=== PATIENT | female | born 1985 | race Native Hawaiian/Other Pacific Islander ===

== ENCOUNTER 2017-12-25 12:02 | Emergency (ER) | payer OTHER ==
[~2017-12-25] VITALS: Ht 185.4 cm; Wt 156.5 kg
[2017-12-25 12:54] LABS: PLATELET COUNT 286 K/uL (152-353)
== END 2017-12-25 13:35 | disposition home or self-care (01) ==
LOC: ED 12:02
PROVIDERS: Family Medicine
DX: D64.9 Anemia, unspecified (principal); J06.9 Acute upper respiratory infection, unspecified
CPT/HCPCS: 85027; 87804; 99283

== ENCOUNTER 2019-04-28 12:56 | Outpatient (CLI) | payer OTHER | END 2019-04-28 20:33 | disposition home or self-care (01) | LOC: MRI 12:56 | DX: R25.1 Tremor, unspecified (principal); R51 Headache ==

== ENCOUNTER 2019-09-05 11:51 | Emergency (ER) | payer OTHER ==
[~2019-09-05] VITALS: Ht 185.4 cm; Wt 158.8 kg
[2019-09-05 11:58] VITALS: TEMP 97.8
[2019-09-05 12:30] LABS: PLATELET COUNT 289 K/uL (152-353)
[2019-09-05 12:45] LABS: POTASSIUM 3.9 mmol/L (3.6-5.2); SODIUM 138 mmol/L (136-145)
[2019-09-05 16:00] VITALS: BP 127/50
== END 2019-09-05 16:10 | disposition home or self-care (01) ==
LOC: ED 11:51
PROVIDERS: Emergency Medicine
DX: R07.89 Other chest pain (principal); R00.0 Tachycardia, unspecified; R94.31 Abnormal electrocardiogram [ECG] [EKG]
CPT/HCPCS: 36415; 80053; 82150; 82550; 82553; 83690; 84484; 85027; 93005; 96360; 96365; 96374; 99284; J2405

== ENCOUNTER 2020-12-30 13:04 | Outpatient (CLI) | payer OTHER | END 2020-12-30 23:06 | disposition home or self-care (01) | LOC: MAMMO 13:04 | PROVIDERS: ATTEND Internal Medicine | DX: N64.59 Other signs and symptoms in breast (principal) ==

== ENCOUNTER 2021-08-03 17:32 | Emergency (ER) | payer OTHER | END 2021-08-03 21:54 | disposition home or self-care (01) | LOC: ED 17:32 | DX: Z53.21 Procedure and treatment not carried out due to patient leaving prior to being seen by health care provider (principal) | CPT/HCPCS: 99281 ==

== ENCOUNTER 2022-02-09 14:21 | Observation (INO) | payer OTHER ==
[~2022-02-09] VITALS: Ht 162.6 cm; Wt 118.4 kg
[2022-02-09] VITALS (11 sets, daily range): BP systolic 126–151; BP diastolic 58–96; TEMP 96.8–98.5; Ht 162.6 cm; Wt 118.4 kg
[2022-02-09 14:54] LABS: PLATELET COUNT 376 K/uL (152-353)
[2022-02-09 15:07] LABS: SODIUM 136 mmol/L (136-145)
[2022-02-09 19:43] LABS: POTASSIUM 4.2 mmol/L (3.6-5.2)
[2022-02-09 23:13] LABS: POTASSIUM 4.1 mmol/L (3.6-5.2)
[2022-02-10] VITALS: BP 110/66; TEMP 98.6
[2022-02-10 02:29] VITALS: BP 110/66; TEMP 98.6
[2022-02-10 03:28] LABS: POTASSIUM 3.8 mmol/L (3.6-5.2)
[2022-02-10 04:08] VITALS: BP 107/54; TEMP 98.5
[2022-02-10 06:40] LABS: PLATELET COUNT 237 K/uL (152-353)
[2022-02-10 06:55] LABS: POTASSIUM 3.9 mmol/L (3.6-5.2)
[2022-02-10 08:00] VITALS: BP 137/76; TEMP 98.3
[2022-02-10 12:00] VITALS: BP 132/71; TEMP 98.9
[2022-02-10] MEDS ORDERED: DIABETA PO (13:21)
[2022-02-10] MEDS ORDERED: GABA400C2 PO (13:21)
[2022-02-10] MEDS ORDERED: PLETAL PO (13:21)
[2022-02-10] MEDS ORDERED: BASAGLAR K100 UNIT/M SC (13:21)
[2022-02-10] MEDS ORDERED: METO50TA27 PO (13:21)
[2022-02-10] MEDS ORDERED: GLUCOSE PO (13:28)
== END 2022-02-10 14:35 | disposition home or self-care (01) ==
LOC: ED 14:21 → MED/SURG 17:04
PROVIDERS: ADMIT Emergency Medicine; ATTEND Internal Medicine
DX: I73.89 Other specified peripheral vascular diseases (principal); E11.42 Type 2 diabetes mellitus with diabetic polyneuropathy; E11.65 Type 2 diabetes mellitus with hyperglycemia; E66.01 Morbid (severe) obesity due to excess calories; I10 Essential (primary) hypertension
CPT/HCPCS: 36415; 80053; 81000; 82948; 83036; 84443; 84484; 85027; 85610; 86352; 87635; 93005; 96360; 96361; 96372; 96375; 99220; 99284; G0378; J1815; J2270; J2405; U0003

== ENCOUNTER 2022-08-31 15:22 | Emergency (ER) | payer OTHER ==
[~2022-08-31] VITALS: Ht 162.6 cm; Wt 118.4 kg
[~2022-08-31 15:22] MED LIST: BASAGLAR K100 UNIT/M SC; DIABETA PO; GABA400C2 PO; GLUCOSE PO; METO50TA27 PO; PLETAL PO
[2022-08-31 16:02] LABS: PLATELET COUNT 518 K/uL (152-353)
[2022-08-31 19:04] VITALS: BP 151/90; TEMP 98.1
== END 2022-08-31 19:04 | disposition home or self-care (01) ==
LOC: ED 15:28
PROVIDERS: Internal Medicine
DX: I95.1 Orthostatic hypotension (principal); B34.9 Viral infection, unspecified; Z20.822 Contact with and (suspected) exposure to COVID-19
CPT/HCPCS: 36415; 80053; 80307; 81002; 85027; 87502; 87635; 93005; 96360; 99284; U0003

== ENCOUNTER 2022-12-02 22:05 | Emergency (ER) | payer OTHER ==
[~2022-12-02] VITALS: Ht 162.6 cm; Wt 118.4 kg
[2022-12-02 22:05] VITALS: TEMP 98.7
[2022-12-03 00:14] VITALS: BP 122/72
== END 2022-12-03 00:15 | disposition home or self-care (01) ==
LOC: ED 22:05
DX: S30.0XXA Contusion of lower back and pelvis, initial encounter (principal); W10.8XXA Fall (on) (from) other stairs and steps, initial encounter; Y92.098 Other place in other non-institutional residence as the place of occurrence of the external cause
CPT/HCPCS: 81025; 96374; 96375; 99284; J1100; J2360; J2405